=== PATIENT | female | born 1945 | race Caucasian/White ===

== ENCOUNTER 2023-06-18 14:52 | Outpatient (RCR) | payer OTHER, SELFPAY | END 2023-06-18 23:59 | disposition home or self-care (01) | LOC: RST 14:52 | PROVIDERS: ATTENDING PHYSICIAN Psychiatry & Neurology Neurology; PRIMARYCARE PHYSICIAN Internal Medicine | DX: R41.3 Other amnesia (principal); R41.841 Cognitive communication deficit | CPT/HCPCS: 96125 ==

== ENCOUNTER 2023-07-19 13:51 | Outpatient (RCR) | payer OTHER, SELFPAY | END 2023-07-19 23:59 | disposition home or self-care (01) | LOC: RST 13:51 | PROVIDERS: ATTENDING PHYSICIAN Psychiatry & Neurology Neurology; PRIMARYCARE PHYSICIAN Internal Medicine | DX: R41.3 Other amnesia (principal); R41.841 Cognitive communication deficit | CPT/HCPCS: 97129; 97130 ==

== ENCOUNTER 2023-08-09 15:30 | Outpatient (RCR) | payer OTHER, SELFPAY | END 2023-08-12 09:28 | disposition home or self-care (01) | LOC: RST 15:30 | PROVIDERS: ATTENDING PHYSICIAN Psychiatry & Neurology Neurology; PRIMARYCARE PHYSICIAN Internal Medicine | DX: R41.3 Other amnesia (principal); R41.841 Cognitive communication deficit | CPT/HCPCS: 97129; 97130 ==

== ENCOUNTER → 2024-07-03 07:33 | Outpatient (REF) | payer OTHER, SELFPAY | LOC: HWRAD 07:33 | PROVIDERS: ATTENDING PHYSICIAN Internal Medicine | DX: Z13.31 Encounter for screening for depression (principal); M81.0 Age-related osteoporosis without current pathological fracture | CPT/HCPCS: 77080 ==